=== PATIENT | female | born 1955 | race Caucasian/White ===

== ENCOUNTER 2024-08-01 05:47 | Inpatient (IN) | payer BC, SELFPAY ==
[2024-08-01] VITALS (12 sets, daily range): BP systolic 108–201; BP diastolic 56–86; PULSE 69–97; RESP 14–22; TEMP 36.6–37.1; O2SAT 92–97; BMI 25.4
--- NOTE | ~2024-08-01 | CT_ITS ---
EXAMINATION: CT abdomen pelvis w con DATE: 08/01/2024 07:17 INDICATION: Abdominal pain and leukocytosis TECHNIQUE: Computed tomography (CT) of the abdomen and pelvis was performed with 100 mL Omnipaque-350 intravenous contrast. Automated exposure control and iterative reconstruction technique were employe d. The dose-length product was 350.79 mGy-cm. COMPARISON: None FINDINGS: Mild bibasilar atelectasis. Heart size is normal. No pericardial or pleural effusion. Small sliding-t ype hiatal hernia. Liver, gallbladder, spleen, pancreas, bilateral adrenal glands and left kidney are normal. 6.6 x 4 mm obstructing stone in the mid right ureter with severe right hydronephrosis, delay ed right nephrogram and surrounding perinephric stranding. There are 3 additional 3-4 mm stone in the right kidney. Bowels are unremarkable. Bladder is normal. The uterus is not identified and has likel y been surgically resected. No free intraperitoneal gas or fluid. No pathologically enlarged abdomina l or pelvic lymphadenopathy. Mild to moderate lumbar and lower thoracic spondylosis. Chronic appearin g mild likely physiologic anterior wedging at T10-T12. IMPRESSION: 1. Right nephrolithiasis with obstructing 6 mm right ureteral stone with severe hydronephrosis. Reviewed, dictated and finalized at location A.
--- NOTE | ~2024-08-01 | XR_ITS ---
EXAMINATION: XR retrograde pyelo w/stent RT DATE: 08/03/2024 09:43 INDICATION: Obstructing right ureteral stone with severe hydronephrosis TECHNIQUE: 7 fluoroscopic images of the abdomen and pelvis were obtained during procedure performed kali Abdi. Radiologist was not present for the imaging or procedure. The amount of fluoroscopy time used during this procedure was 0.6 minutes. Total DAP was 0.538 mGym^2. COMPARISON: CT dated 08/01/2024 FINDINGS: Images demonstrate cannulation and retrograde contrast injection into the right ureter and renal janey ecting system. There is severe right hydronephrosis. Subsequent images demonstrate placement of a rig ht ureteral stent with proximal tip in an upper pole calyx of the right kidney and distal tip in the bladder. There is suggestion of a lucent filling defect in the distal right ureter which could repres ent the previous noted stone on CT. IMPRESSION: 1. Severe right hydronephrosis with interval placement of a right anterior vertebral stent which is i n expected position. Possible stone in the distal right ureter. Correlate with procedure note for fur ther detail. Reviewed, dictated and finalized at location A. IMPRESSION: 1. Severe right hydronephrosis with interval placement of a right anterior vert ebral stent which is in expected position. Possible stone in the distal right u reter. Correlate with procedure note for further detail.
[2024-08-01 06:23] LABS: Basophils Absolute Auto 0.1 K/mm3 (0.0-0.1); Basophils Percent Auto 0.5 % (0.2-1.2); Hematocrit 46.5 % (37.0-47.0); Hemoglobin 15.3 g/dL (12.0-15.0); Immature Granulocyte Absolute 0.15 K/mm3 (0.00-0.031); Immature Granulocyte Percent A 0.7 % (0-0.5); Lymphocytes Absolute Auto 1.78 K/mm3 (0.9-3.2); Lymphocytes Percent Auto 8.6 % (18.3-44.2); Mean Corpuscular HGB Conc 32.9 g/dl (32-36); Mean Corpuscular Hemoglobin 29.7 pg (26-34); Mean Corpuscular Volume 90.3 fl (80-100); Mean Platelet Volume 10.5 fl (7.4-10.4); Monocytes Absolute Auto 0.9 K/mm3 (0.1-0.6); Monocytes Percent Auto 4.4 % (2.6-8.5); Neutrophils Absolute Auto 17.8 K/mm3 (1.3-6.7); Neutrophils Percent Auto 85.8 % (45.5-73.1); Platelet Count Result 308 k/mm3 (150-375); Red Blood Count 5.15 M/mm3 (4.2-5.4); Red Cell Distribution Width 13.5 % (11.5-14.5); White Blood Count 20.7 K/mm3 (4.5-10.0)
[2024-08-01 06:30] LABS: Add Urine Microscopic? YES; Appearance Urine Clear (Clear); Bacteria Urine None Seen /hpf; Bilirubin Urine Negative (Negative); Blood Urine 1+ (Negative); Color Urine Yellow (Yellow); Glucose Urine UA Negative (Negative); Ketones Urine Trace mg/dL (Negative); Leukocyte Esterase Ur Negative LEU/UL (Negative); Nitrate Urine Negative (Negative); Non Pathogenic Casts 0-2; Protein Urine Trace mg/dL (Negative); Specific Grav Ur 1.012 (1.001-1.035); Squamous Epithelial Cell Urine None Seen /hpf (Few); Urobilinogen Urine 0.2 mg/dL (<2.0); WBC Urine 0-5 /hpf (0-3)
[2024-08-01 06:37] LABS: Alanine Aminotransferase 43 U/L (6-35); Albumin Level 4.8 g/dL (3.5-5.1); Alkaline Phosphatase 103 U/L (38-126); Anion Gap 14 mmol/L (4-12); Aspartate Amino Transferase 42 U/L (14-36); Bilirubin,Total 0.4 mg/dL (0.2-1.3); Blood Urea Nitrogen 24 mg/dL (7-17); Calcium 10.6 mg/dL (8.4-10.2); Carbon Dioxide 24 mmol/L (22-30); Chloride 101 mmol/L (98-107); Estimated CRCL calculation 49 ml/min; Estimated Glomerular Filt Rate > 60; Glucose 175 mg/dL (65-110); Potassium 3.7 mmol/L (3.4-5.0); Sodium 139 mmol/L (137-145); Total Protein 8.4 g/dL (6.3-8.2)
--- NOTE | 2024-08-01 06:49 | ED_ITS ---
HPI - General Adult General Chief complaint: Urogenital-Female <Ancelmo Cope MD - Last Filed: 08/01/24 06:52> Stated complaint: burning urination, vomitng <Ancelmo Cope MD - Last Filed: 08/01/24 06:52> Time Seen by Provider: 08/01/24 06:52 <Ancelmo Cope MD - Last Filed: 08/01/24 06:52> History of Present Illness HPI narrative: Patient is 69-year-old female who presents emergency department chief complaint of lower abdominal pain and burning with urination patient states that she started having pain yesterday afternoon reports she had discomfort with urination reports he has had nausea and vomiting patient reports she has had kidney stones in the past reports no fever reports she is concerned that she may have a UTI <Ancelmo Cope MD - Last Filed: 08/01/24 06:52> Related Data Allergies/adverse reactions: Allergies Allergy/AdvReac Type Severity Reaction Status Date / Time Sulfa (Sulfonamide AdvReac Hives Verified 08/01/24 06:33 Antibiotics) <Ancelmo Cope MD - Last Filed: 08/01/24 06:52> Review of Systems 2 Review of Systems: A 10 system review of systems was completed on the patient and is negative except for what is stated in the HPI. Nursing and ancillary documentation was reviewed. <Ancelmo Cope MD - Last Filed: 08/01/24 06:52> Exam 2 Narrative: GENERAL: Well-appearing, well-nourished, and in moderate acute pain distress. HEAD: Normocephalic, atraumatic. EYES: PERRLA and EOMI. ENT: Nares clear, no rhinorrhea or epistaxis. Mucous membranes moist. NECK: Supple. CHEST: Clear to auscultation. No respiratory distress. HEART: Regular rate and rhythm. No murmur heard. Normal peripheral pulses. ABDOMEN: Soft, diffuse mild tenderness, nondistended, normal active bowel sounds. EXTREMITIES: Normal range of motion. No edema. SKIN: Warm, dry, no rash. NEURO: No focal deficits. Alert and oriented x3. PSYCH: Normal mood and affect. <Ancelmo Cope MD - Last Filed: 08/01/24 06:52> Course Course Emergency Course: Patient's CT scan results with signs of obstructing stone with hydronephrosis. Patient reassessed at bedside and she is having recurrent pain and nausea. Dilaudid and Reglan are ordered. She notes that she has a history of a urologist performed lithotripsy through [facility] on [address] although she cannot recall their name. We discussed transfer to [facility] for continuity of care versus discussing with our urologist. She did want to proceed with consulting our on-call urologist. Discussed case with Dr. Abdi who noted that the recommendation would be NPO, stent placement today, and admission overnight given her white count. Discussed with patient who is in agreement to stay as she feels this is best given her pain, elderly father, etc. Confirmed with Dr Abdi who wiill add her on to OR schedule. Discussed with Dr Arroyo who accepts admission. <Junie Lopez MD - Last Filed: 08/01/24 08:38> Vital Signs Vital signs: Vital Signs Temperature 98.3 F 08/01/24 05:54 Pulse Rate 86 08/01/24 05:54 Respiratory Rate 17 08/01/24 05:54 Blood Pressure 201/86 H 08/01/24 05:54 Pulse Oximetry 95 08/01/24 05:54 Oxygen Delivery Room Air 08/01/24 05:54 Temperature 98.3 F 08/01/24 05:54 Pulse Rate 93 08/01/24 08:02 Respiratory Rate 16 08/01/24 08:02 Blood Pressure 177/81 H 08/01/24 08:02 Pulse Oximetry 94 08/01/24 08:02 Oxygen Delivery Room Air 08/01/24 05:54 <Ancelmo Cope MD - Last Filed: 08/01/24 06:52> Vital Signs Temperature 98.3 F 08/01/24 05:54 Pulse Rate 86 08/01/24 05:54 Respiratory Rate 17 08/01/24 05:54 Blood Pressure 201/86 H 08/01/24 05:54 Pulse Oximetry 95 08/01/24 05:54 Oxygen Delivery Room Air 08/01/24 05:54 Temperature 98.3 F 08/01/24 05:54 Pulse Rate 93 08/01/24 08:02 Respiratory Rate 16 08/01/24 08:02 Blood Pressure 177/81 H 08/01/24 08:02 Pulse Oximetry 94 08/01/24 08:02 Oxygen Delivery Room Air 08/01/24 05:54 <Junie Lopez MD - Last Filed: 08/01/24 08:38> Medical Decision Making MDM Narrative Medical decision making narrative: Differential diagnosis includes UTI, ureterolithiasis, abdominal pain, intra-abdominal infection, diverticulitis, colitis, appendicitis Laboratory studies were obtained on the patient showed white count of 20.7 hemoglobin was 15.3 electrolytes showed a BUN of 24 and a creatinine is 0.78 glucose is 175 AST and ALT were slightly elevated at 42 and 43 respectively bilirubin was normal Urinalysis showed trace ketones 1+ blood 11-20 red blood cells <Ancelmo Cope MD - Last Filed: 08/01/24 06:52> Vital Signs Vital Signs: Vital Signs Temperature 98.3 F 08/01/24 05:54 Pulse Rate 86 08/01/24 05:54 Respiratory Rate 17 08/01/24 05:54 Blood Pressure 201/86 H 08/01/24 05:54 Pulse Oximetry 95 08/01/24 05:54 Oxygen Delivery Room Air 08/01/24 05:54 Temperature 98.3 F 08/01/24 05:54 Pulse Rate 93 08/01/24 08:02 Respiratory Rate 16 08/01/24 08:02 Blood Pressure 177/81 H 08/01/24 08:02 Pulse Oximetry 94 08/01/24 08:02 Oxygen Delivery Room Air 08/01/24 05:54 <Ancelmo Cope MD - Last Filed: 08/01/24 06:52> Vital Signs Temperature 98.3 F 08/01/24 05:54 Pulse Rate 86 08/01/24 05:54 Respiratory Rate 17 08/01/24 05:54 Blood Pressure 201/86 H 08/01/24 05:54 Pulse Oximetry 95 08/01/24 05:54 Oxygen Delivery Room Air 08/01/24 05:54 Temperature 98.3 F 08/01/24 05:54 Pulse Rate 93 08/01/24 08:02 Respiratory Rate 16 08/01/24 08:02 Blood Pressure 177/81 H 08/01/24 08:02 Pulse Oximetry 94 08/01/24 08:02 Oxygen Delivery Room Air 08/01/24 05:54 <Junie Lopez MD - Last Filed: 08/01/24 08:38> Lab Data Result diagrams: 08/01/24 06:16 08/01/24 06:16 <Ancelmo Cope MD - Last Filed: 08/01/24 06:52> Labs: Lab Results 08/01/24 Range/Units 06:16 WBC 20.7 H (4.5-10.0) K/mm3 RBC 5.15 (4.2-5.4) M/mm3 Hgb 15.3 H (12.0-15.0) g/dL Hct 46.5 (37.0-47.0) % MCV 90.3 (80-100) fl MCH 29.7 (26-34) pg MCHC 32.9 (32-36) g/dl RDW 13.5 (11.5-14.5) % Plt Count 308 (150-375) k/mm3 MPV 10.5 H (7.4-10.4) fl Immature Gran % (Auto) 0.7 H (0-0.5) % Neut % (Auto) 85.8 H (45.5-73.1) % Lymph % (Auto) 8.6 L (18.3-44.2) % [facility] % (Auto) 4.4 (2.6-8.5) % Eos % (Auto) 0.0 (0-4.4) % Baso % (Auto) 0.5 (0.2-1.2) % Lymph # (Auto) 1.78 (0.9-3.2) K/mm3 [facility] # (Auto) 0.9 H (0.1-0.6) K/mm3 Eos # (Auto) 0.0 (0-0.3) K/mm3 Baso # (Auto) 0.1 (0.0-0.1) K/mm3 Abs Immat Gran (auto) 0.15 H (0.00-0.031) K/mm3 Absolute Neuts (auto) 17.8 H (1.3-6.7) K/mm3 Absolute Nucleated RBC 0.000 (0.0-0.012) K/mm3 Nucleated RBC % 0.0 (0.0-0.2) % Sodium 139 (137-145) mmol/L Potassium 3.7 (3.4-5.0) mmol/L Chloride 101 (98-107) mmol/L Carbon Dioxide 24 (22-30) mmol/L Anion Gap 14 H (4-12) mmol/L BUN 24 H (7-17) mg/dL Creatinine 0.78 (0.7-1.0) mg/dL Estim Creat Clear Calc 49 ml/min Estimated GFR > 60 (59 - ) Glucose 175 H (65-110) mg/dL Calcium 10.6 H (8.4-10.2) mg/dL Total Bilirubin 0.4 (0.2-1.3) mg/dL AST 42 H (14-36) U/L ALT 43 H (6-35) U/L Alkaline Phosphatase 103 (38-126) U/L Total Protein 8.4 H (6.3-8.2) g/dL Albumin 4.8 (3.5-5.1) g/dL Urine Color Yellow (Yellow) Urine Appearance Clear (Clear) Urine pH 7.0 (5.0-9.0) Ur Specific [place] 1.012 (1.001-1.035) Urine Protein Trace (Negative) mg/dL Urine Glucose (UA) Negative (Negative) mg/dL Urine Ketones Trace H (Negative) mg/dL Ur Blood (Man) 1+ H (Negative) Urine Nitrate Negative (Negative) Urine Bilirubin Negative (Negative) Urine Urobilinogen 0.2 (<2.0) mg/dL Leukocyte Esterase Rfl Negative (Negative) NEELA/UL Urine RBC 11-20 H (0-2) /hpf Urine WBC 0-5 (0-3) /hpf Ur Squamous Epith Cells None seen (Few) /hpf Urine Bacteria None seen /hpf Urine Casts 0-2 <Ancelmo Cope MD - Last Filed: 08/01/24 06:52> Lab Results 08/01/24 Range/Units 06:16 WBC 20.7 H (4.5-10.0) K/mm3 RBC 5.15 (4.2-5.4) M/mm3 Hgb 15.3 H (12.0-15.0) g/dL Hct 46.5 (37.0-47.0) % MCV 90.3 (80-100) fl MCH 29.7 (26-34) pg MCHC 32.9 (32-36) g/dl RDW 13.5 (11.5-14.5) % Plt Count 308 (150-375) k/mm3 MPV 10.5 H (7.4-10.4) fl Immature Gran % (Auto) 0.7 H (0-0.5) % Neut % (Auto) 85.8 H (45.5-73.1) % Lymph % (Auto) 8.6 L (18.3-44.2) % [facility] % (Auto) 4.4 (2.6-8.5) % Eos % (Auto) 0.0 (0-4.4) % Baso % (Auto) 0.5 (0.2-1.2) % Lymph # (Auto) 1.78 (0.9-3.2) K/mm3 [facility] # (Auto) 0.9 H (0.1-0.6) K/mm3 Eos # (Auto) 0.0 (0-0.3) K/mm3 Baso # (Auto) 0.1 (0.0-0.1) K/mm3 Abs Immat Gran (auto) 0.15 H (0.00-0.031) K/mm3 Absolute Neuts (auto) 17.8 H (1.3-6.7) K/mm3 Absolute Nucleated RBC 0.000 (0.0-0.012) K/mm3 Nucleated RBC % 0.0 (0.0-0.2) % Sodium 139 (137-145) mmol/L Potassium 3.7 (3.4-5.0) mmol/L Chloride 101 (98-107) mmol/L Carbon Dioxide 24 (22-30) mmol/L Anion Gap 14 H (4-12) mmol/L BUN 24 H (7-17) mg/dL Creatinine 0.78 (0.7-1.0) mg/dL Estim Creat Clear Calc 49 ml/min Estimated GFR > 60 (59 - ) Glucose 175 H (65-110) mg/dL Calcium 10.6 H (8.4-10.2) mg/dL Total Bilirubin 0.4 (0.2-1.3) mg/dL AST 42 H (14-36) U/L ALT 43 H (6-35) U/L Alkaline Phosphatase 103 (38-126) U/L Total Protein 8.4 H (6.3-8.2) g/dL Albumin 4.8 (3.5-5.1) g/dL Urine Color Yellow (Yellow) Urine Appearance Clear (Clear) Urine pH 7.0 (5.0-9.0) Ur Specific [place] 1.012 (1.001-1.035) Urine Protein Trace (Negative) mg/dL Urine Glucose (UA) Negative (Negative) mg/dL Urine Ketones Trace H (Negative) mg/dL Ur Blood (Man) 1+ H (Negative) Urine Nitrate Negative (Negative) Urine Bilirubin Negative (Negative) Urine Urobilinogen 0.2 (<2.0) mg/dL Leukocyte Esterase Rfl Negative (Negative) NEELA/UL Urine RBC 11-20 H (0-2) /hpf Urine WBC 0-5 (0-3) /hpf Ur Squamous Epith Cells None seen (Few) /hpf Urine Bacteria None seen /hpf Urine Casts 0-2 <Junie Lopez MD - Last Filed: 08/01/24 08:38> Discharge Plan Discharge Clinical Impression: Right nephrolithiasis, Hydronephrosis with renal and ureteral calculus obstruction, Leukocytosis <Ancelmo Cope MD - Last Filed: 08/01/24 06:52> Patient Disposition: Still a Patient <Ancelmo Cope MD - Last Filed: 08/01/24 06:52> Condition: Stable <Ancelmo Cope MD - Last Filed: 08/01/24 06:52> Patient Language: Czech <Ancelmo Cope MD - Last Filed: 08/01/24 06:52> Follow-up/Referrals: PHYSICIAN NOT ON STAFF,NONSTAFF [Non-Staff] - <Ancelmo Cope MD - Last Filed: 08/01/24 06:52>
[2024-08-01] MEDS: SODIUM CHLORIDE 0.9% IV 1,000 ML 999 ML IV CONT (06:52)
[2024-08-01] MEDS: ONDANSETRON INJ 4 MG/2 ML VIAL IV PUSH (06:53)
[2024-08-01] MEDS: MORPHINE SULFATE (*CRX) 4 MG/ML INJ IV PUSH (06:53)
[2024-08-01] MEDS: METOCLOPRAMIDE HCL INJ 10 MG/2 ML VIAL IV PUSH (08:05)
[2024-08-01] MEDS: HYDROmorphone HCL INJ (*CRX) 2 MG/ML VIAL 0.5 MG IV PUSH (08:06)
--- NOTE | 2024-08-01 11:06 | P.HP_ITS ---
H&P: HPI History of Present Illness Date/Time: 08/01/24 11:06 Chief Complaint: lower abd pain/difficulty urination Narrative: Patient with history of kidney stone presented with lower abdomen pain and dysuria that started history of present time. Patient also has been feeling nauseated. Pain is sharp, severe. Getting better with pain medication. Patient had chills. Denies any fever, chest pain, abdominal pain. Present to hospital for further management. In the ER CT showed hydronephrosis with obstructing stone. Urology team was consulted. Treatment started with pain medication. Patient was admitted for further management. At time of my exam patient feeling better. Her pain is under better control. Lab tests WBC 20.7. We will start IV antibiotics, continue with IV fluid and pain medication. Follow culture result. Review of Systems Review of Systems: A 10 system review of systems was completed on the patient and is negative except for what is stated in the HPI. Nursing and ancillary documentation was reviewed. [facility] Social History Social History Smoking status: Never smoker Alcohol intake: never Substance use: never Substance use type: does not use Do You Feel Safe in your Home?: Yes Lack of Transportation: YES Lack of Food: Never True Current Housing: I Have Housing Concerned About Future Housing: No Difficulty Paying Gas/Electric Bills: No Difficulty Paying for Meds: No Currently Unemployed: No Education: Bachelor's Degree Difficulty w/ Childcare or Family Care: No Spiritual care concerns: No Meds Home Medications and Allergies Home Medications ?Medication ?Instructions ?Recorded ?Confirmed ?Type ascorbate calcium (vitamin C) 500 500 mg PO EVERY OTHER DAY 08/01/24 08/01/24 History mg tablet aspirin 81 mg tablet,delayed 81 mg PO DAILY 08/01/24 08/01/24 History release (Adult Low Dose Aspirin) losartan 25 mg tablet 25 mg PO DAILY 08/01/24 08/01/24 History magnesium sulfate 100 mg capsule 100 mg PO EVERY OTHER DAY 08/01/24 08/01/24 History vit C-vit Z-jrkpbo-cgquqaxq capsule 1 cap PO DAILY 08/01/24 08/01/24 History vitamin E 268 mg (400 unit) capsule 268 mg PO DAILY 08/01/24 08/01/24 History Allergies Allergy/AdvReac Type Severity Reaction Status Date / Time Sulfa (Sulfonamide AdvReac Hives Verified 08/01/24 06:33 Antibiotics) Vital Signs Vital Signs - 24 hr 08/01/24 05:54 08/01/24 07:02 08/01/24 07:46 Temperature 98.3 F Pulse Rate 86 89 97 Respiratory Rate 17 16 16 Blood Pressure 201/86 H 181/78 H 161/70 H Pulse Oximetry 95 97 92 Oxygen Delivery Room Air 08/01/24 08:02 08/01/24 10:01 Temperature Pulse Rate 93 90 Respiratory Rate 16 16 Blood Pressure 177/81 H 149/77 H Pulse Oximetry 94 92 Oxygen Delivery Exam Narrative: GENERAL: Well-appearing, well-nourished, and in moderate acute pain distress. HEAD: Normocephalic, atraumatic. EYES: PERRLA and EOMI. ENT: Nares clear, no rhinorrhea or epistaxis. Mucous membranes moist. NECK: Supple. CHEST: Clear to auscultation. No respiratory distress. HEART: Regular rate and rhythm. No murmur heard. Normal peripheral pulses. ABDOMEN: Soft, diffuse mild lower abdomen tenderness, nondistended, normal active bowel sounds. EXTREMITIES: Normal range of motion. No edema. SKIN: Warm, dry, no rash. NEURO: No focal deficits. Alert and oriented x3. PSYCH: Normal mood and affect. H&P: Results Labs Labs: Short CBC 08/01/24 Range/Units 06:16 WBC 20.7 H (4.5-10.0) K/mm3 Hgb 15.3 H (12.0-15.0) g/dL Hct 46.5 (37.0-47.0) % Plt Count 308 (150-375) k/mm3 [facility] 08/01/24 06:16 Sodium 139 Potassium 3.7 Chloride 101 Carbon Dioxide 24 BUN 24 H Creatinine 0.78 Glucose 175 H Calcium 10.6 H Liver Function 08/01/24 Range/Units 06:16 Total Bilirubin 0.4 (0.2-1.3) mg/dL AST 42 H (14-36) U/L ALT 43 H (6-35) U/L Alkaline Phosphatase 103 (38-126) U/L Albumin 4.8 (3.5-5.1) g/dL Urine 08/01/24 Range/Units 06:16 Urine Color Yellow (Yellow) Urine Appearance Clear (Clear) Urine pH 7.0 (5.0-9.0) Ur Specific [place] 1.012 (1.001-1.035) Urine Protein Trace (Negative) mg/dL Urine Glucose (UA) Negative (Negative) mg/dL Assessment and Plan Assessment and plan (1) Hydronephrosis with renal and ureteral calculus obstruction: Code(s): N13.2 - Hydronephrosis with renal and ureteral calculous obstruction Status: Acute (2) Right nephrolithiasis: Code(s): N20.0 - Calculus of kidney Status: Acute (3) Leukocytosis: Code(s): D72.829 - Elevated white blood cell count, unspecified Status: Acute (4) HTN (hypertension): Code(s): I10 - Essential (primary) hypertension Status: Acute (5) UTI (urinary tract infection): Code(s): N39.0 - Urinary tract infection, site not specified Status: Acute Plan Nephrolithiasis Pain medication Neurology team onboard plan for possible stent placement Continue monitor leukocytosis Secondary to UTI Will start IV Zosyn Follow cultures HTN losartan Continue monitor
[2024-08-01] MEDS: ACETAMINOPHEN 325 MG TABLET 650 MG PO ×2 (11:34→19:50)
--- NOTE | 2024-08-01 11:58 | ADMGEN ---
This patient, Leatha Goldberg, was admitted to 3 [facility] Surg Room 316-02. Patient/family oriented to hospital policies and general routines including ID bracelet, bed and alarms, visiting hours, pain management, procedures, bathroom and other care routines, personal items, smoking policy, room service/diet, and visiting hours. Information on how to activate the Rapid Response Team has been discussed. Patient/Family are encouraged to report perceived risks to care and to ask questions if they do not understand what they are told or what they should do.
[2024-08-01] MEDS: PIPERACILLN/TAZ 3.375GM/NS50ML 3.375 GM/50 ML BAG IVPB ×3 (14:04→23:04)
[2024-08-01 14:07] LABS: Hemoglobin A1C 6.4 % (<5.7)
--- NOTE | 2024-08-01 15:04 | P.CONUR_ITS ---
Assessment and Plan Assessment and plan (1) UTI (urinary tract infection): Code(s): N39.0 - Urinary tract infection, site not specified Status: Acute (2) Leukocytosis: Code(s): D72.829 - Elevated white blood cell count, unspecified Status: Acute (3) Hydronephrosis with renal and ureteral calculus obstruction: Code(s): N13.2 - Hydronephrosis with renal and ureteral calculous obstruction Status: Acute (4) Right nephrolithiasis: Code(s): N20.0 - Calculus of kidney Status: Acute Assessment and Plan: given elevated wbc concern for underlying infected obstructed stone, agree with empiric broad spectrum IV abx ( zosyn), plan for cysto, R RPG, right stent placement, reviewed pertinent risks/benefits/alternatives/nature of procedure and complications in detail. Pt understands stent is temporary and we will not be treating stone today, pt understands stent can cause pain, urinary urgency, frequency and if a stent tis left in too long she may experience irreversible kidney damage. Pt understands she will require additional procedures to treat stone/remove stent, we reviewed risks including but not limited to of bleeding infection, trauma to structures ureteral injury need for PCN tube by IR,stent failure/ migration, etc. Pt understands anesthesia risks of CT, stroke blood clots, /disability. all ? answered pt agrees to proceed. Pt is wishing to transfer care to a local urologist at [place] moving forward given proximity to her home Urology Consult Note HPI Date Seen: 08/01/24 Requesting Physician: Santino Arroyo MD Primary Care Provider: UNKNOWN,DOCTOR Consult Narrative Narrative: Leatha Goldberg is a 69 year old female with hx of HT, kidney stones (primary urologist at [facility] can not remember his name) presented with right lower abdomen pain and dysuria that started history of present time. Patient also has been feeling nauseated. Pain is sharp, severe. Denies GH or dysuria, + chills. Denies any fever, chest pain, abdominal pain. CT in ER shows right mid to distal ureter stone, WBC 20. pt has stents prior for her stone disease Review of Systems 2 Constitutional: Constitutional: Reports as per HPI Eyes: Eyes: Reports as per HPI ENT: Reports Normal hearing present Cardiovascular: Cardiovascular: Reports as per HPI Respiratory: Respiratory: Reports as per HPI Gastrointestinal: Gastrointestinal: Reports no additional gastrointestinal complaints Genitourinary: Genitourinary: Reports no additional female genitourinary complaints Musculoskeletal: Musculoskeletal: Reports no additional musculoskeletal complaints Integumentary/Breasts: Skin/Breast: Reports system reviewed and no additional complaints, except as docu Neurologic: Reports as per HPI Psychiatric: Psychiatric: Reports no additional psychiatric complaints PMFSH Social History Social History Smoking status: Never smoker Alcohol intake: never Substance use: never Substance use type: does not use Do You Feel Safe in your Home?: Yes Lack of Transportation: YES Lack of Food: Never True Current Housing: I Have Housing Concerned About Future Housing: No Difficulty Paying Gas/Electric Bills: No Difficulty Paying for Meds: No Currently Unemployed: No Education: Bachelor's Degree Difficulty w/ Childcare or Family Care: No Spiritual care concerns: No Meds Home Medications and Allergies Home Medications ?Medication ?Instructions ?Recorded ?Confirmed ?Type ascorbate calcium (vitamin C) 500 500 mg PO EVERY OTHER DAY 08/01/24 08/01/24 History mg tablet aspirin 81 mg tablet,delayed 81 mg PO DAILY 08/01/24 08/01/24 History release (Adult Low Dose Aspirin) losartan 25 mg tablet 25 mg PO DAILY 08/01/24 08/01/24 History magnesium sulfate 100 mg capsule 100 mg PO EVERY OTHER DAY 08/01/24 08/01/24 History vit C-vit V-hjaese-hggxtteq capsule 1 cap PO DAILY 08/01/24 08/01/24 History vitamin E 268 mg (400 unit) capsule 268 mg PO DAILY 08/01/24 08/01/24 History Allergies Allergy/AdvReac Type Severity Reaction Status Date / Time Sulfa (Sulfonamide AdvReac Hives Verified 08/01/24 06:33 Antibiotics) Vital Signs Vital Signs - 24 hr 08/01/24 05:54 08/01/24 07:02 08/01/24 07:46 Temperature 36.8 C Pulse Rate 86 89 97 Respiratory Rate 17 16 16 Blood Pressure 201/86 H 181/78 H 161/70 H Pulse Oximetry 95 97 92 Oxygen Delivery Room Air 08/01/24 08:02 08/01/24 10:01 08/01/24 10:20 Temperature 36.6 C Pulse Rate 93 90 92 Respiratory Rate 16 16 18 Blood Pressure 177/81 H 149/77 H 163/68 H Pulse Oximetry 94 92 96 Oxygen Delivery Exam 2 Const: General: comfortable and no acute distress HENMT: Face/Nose/Sinus: Normal nares present Mouth: Yes moist mucous membranes abnormal Eyes: General: appearance normal, both eyes and all related structures EOM: EOMs intact bilaterally Neck: Neck: supple Resp: Effort & Inspection: normal respiratory effort Cardio: Rate: regular rate Rhythm: regular rhythm GI: Inspection: non-distended GI Palp: Yes Soft to palpation, No Tenderness to palpation present (GI) and No Guarding due to palpation present (GI) Skin: General skin exam: normal color and no rashes or lesions noted Neuro: Speech: normal speech Extrem: General: normal to inspection Psych: Speech and movement: Normal speech and movement present Results Labs 08/01/24 06:16 08/01/24 06:16 Labs: Short CBC 08/01/24 Range/Units 06:16 WBC 20.7 H (4.5-10.0) K/mm3 Hgb 15.3 H (12.0-15.0) g/dL Hct 46.5 (37.0-47.0) % Plt Count 308 (150-375) k/mm3 BMP 08/01/24 06:16 Sodium 139 Potassium 3.7 Chloride 101 Carbon Dioxide 24 BUN 24 H Creatinine 0.78 Glucose 175 H Calcium 10.6 H Liver Function 08/01/24 Range/Units 06:16 Total Bilirubin 0.4 (0.2-1.3) mg/dL AST 42 H (14-36) U/L ALT 43 H (6-35) U/L Alkaline Phosphatase 103 (38-126) U/L Albumin 4.8 (3.5-5.1) g/dL Urine 08/01/24 Range/Units 06:16 Urine Color Yellow (Yellow) Urine Appearance Clear (Clear) Urine pH 7.0 (5.0-9.0) Ur Specific [place] 1.012 (1.001-1.035) Urine Protein Trace (Negative) mg/dL Urine Glucose (UA) Negative (Negative) mg/dL Imaging Radiologist's impression: 1. Right nephrolithiasis with obstructing 6 mm right ureteral stone with severe hydronephrosis
--- NOTE | 2024-08-01 15:12 | WPDHPUPDATE1 ---
History and Physical Update Update Date/Time: 08/01/24 15:12 History and Physical has been reviewed, including an updated exam of the patient. There are NO changes in the patient's condition. Risks, benefits, and alternatives have been discussed and questions answered. Patient agrees to proceed with procedure.
--- NOTE | 2024-08-01 15:57 | P.PNAN_ITS ---
Anes - Initial Pre Proc Eval Procedure: Operation Date: 08/01/24 16:00 Proposed Procedures p Cysto, RPG, Stone Ext, Stent Placement(Right) - Taqueria Abdi MD Date/Time: 08/01/24 15:57 Surgeon: Santino Arroyo MD Pre Op Diagnosis: obstructing stone Patient Data Age: 69 Gender: F Height: 1.6 m Weight: 65.3 kg Last Vital Signs Temp 36.7 C 08/01/24 14:00 Pulse 85 08/01/24 14:00 Resp 18 08/01/24 14:00 BP 125/62 08/01/24 14:00 Pulse Ox 93 08/01/24 14:00 O2 Del Method Room Air 08/01/24 05:54 Allergies Allergy/AdvReac Type Severity Reaction Status Date / Time Sulfa (Sulfonamide AdvReac Hives Verified 08/01/24 06:33 Antibiotics) Home Medications ?Medication ?Instructions ?Recorded ?Confirmed ?Type ascorbate calcium (vitamin C) 500 500 mg PO EVERY OTHER DAY 08/01/24 08/01/24 History mg tablet aspirin 81 mg tablet,delayed 81 mg PO DAILY 08/01/24 08/01/24 History release (Adult Low Dose Aspirin) losartan 25 mg tablet 25 mg PO DAILY 08/01/24 08/01/24 History magnesium sulfate 100 mg capsule 100 mg PO EVERY OTHER DAY 08/01/24 08/01/24 History vit C-vit V-wmqcni-vorhxlyn capsule 1 cap PO DAILY 08/01/24 08/01/24 History vitamin E 268 mg (400 unit) capsule 268 mg PO DAILY 08/01/24 08/01/24 History Laboratory Tests 08/01/24 06:16 WBC 20.7 H K/mm3 (4.5-10.0) RBC 5.15 M/mm3 (4.2-5.4) Hgb 15.3 H g/dL (12.0-15.0) Hct 46.5 % (37.0-47.0) MCV 90.3 fl (80-100) MCH 29.7 pg (26-34) MCHC 32.9 g/dl (32-36) RDW 13.5 % (11.5-14.5) Plt Count 308 k/mm3 (150-375) MPV 10.5 H fl (7.4-10.4) Immature Gran % (Auto) 0.7 H % (0-0.5) Neut % (Auto) 85.8 H % (45.5-73.1) Lymph % (Auto) 8.6 L % (18.3-44.2) [place] % (Auto) 4.4 % (2.6-8.5) Eos % (Auto) 0.0 % (0-4.4) Baso % (Auto) 0.5 % (0.2-1.2) Lymph # (Auto) 1.78 K/mm3 (0.9-3.2) [place] # (Auto) 0.9 H K/mm3 (0.1-0.6) Eos # (Auto) 0.0 K/mm3 (0-0.3) Baso # (Auto) 0.1 K/mm3 (0.0-0.1) Abs Immat Gran (auto) 0.15 H K/mm3 (0.00-0.031) Absolute Neuts (auto) 17.8 H K/mm3 (1.3-6.7) Absolute Nucleated RBC 0.000 K/mm3 (0.0-0.012) Nucleated RBC % 0.0 % (0.0-0.2) Sodium 139 mmol/L (137-145) Potassium 3.7 mmol/L (3.4-5.0) Chloride 101 mmol/L (98-107) Carbon Dioxide 24 mmol/L (22-30) Anion Gap 14 H mmol/L (4-12) BUN 24 H mg/dL (7-17) Creatinine 0.78 mg/dL (0.7-1.0) Estim Creat Clear Calc 49 ml/min Estimated GFR > 60 (59 - ) Glucose 175 H mg/dL (65-110) Hemoglobin A1c 6.4 H % (<5.7) Calcium 10.6 H mg/dL (8.4-10.2) Total Bilirubin 0.4 mg/dL (0.2-1.3) AST 42 H U/L (14-36) ALT 43 H U/L (6-35) Alkaline Phosphatase 103 U/L (38-126) Total Protein 8.4 H g/dL (6.3-8.2) Albumin 4.8 g/dL (3.5-5.1) Urine Color Yellow (Yellow) Urine Appearance Clear (Clear) Urine pH 7.0 (5.0-9.0) Ur Specific [place] 1.012 (1.001-1.035) Urine Protein Trace mg/dL (Negative) Urine Glucose (UA) Negative mg/dL (Negative) Urine Ketones Trace H mg/dL (Negative) Ur Blood (Man) 1+ H (Negative) Urine Nitrate Negative (Negative) Urine Bilirubin Negative (Negative) Urine Urobilinogen 0.2 mg/dL (<2.0) Leukocyte Esterase Rfl Negative NEELA/UL (Negative) Urine RBC 11-20 H /hpf (0-2) Urine WBC 0-5 /hpf (0-3) Ur Squamous Epith Cells None seen /hpf (Few) Urine Bacteria None seen /hpf Urine Casts 0-2 Patient hx anesthesia problems: none Family hx anesthesia problems: none Results Review: All pre-operative results and documents have been reviewed as part of the pre- operative evaluation. [facility] Past Medical History Medical History (Updated 08/01/24 @ 15:57 by Andrea Gómez DO) HTN (hypertension) Social History Social History Smoking status: Never smoker Alcohol intake: never Substance use: never Substance use type: does not use Do You Feel Safe in your Home?: Yes Lack of Transportation: YES Lack of Food: Never True Current Housing: I Have Housing Concerned About Future Housing: No Difficulty Paying Gas/Electric Bills: No Difficulty Paying for Meds: No Currently Unemployed: No Education: Bachelor's Degree Difficulty w/ Childcare or Family Care: No Spiritual care concerns: No Anes - Eval Final PreProcedure Day of Procedure 08/01/24 15:57 Patient weight: overweight Heart: regular rate and rhythm Lungs: clear to auscultation Airway: Mallampati scale class II Neurological: alert and oriented Last oral intake: >/= 8 hours ASA classification: II Emergent: no Anesthetic plan: proceed Anesthesia type and monitoring: general LMA and standard monitoring Results Review: All pre-operative results and documents have been reviewed as part of the pre- operative evaluation. Informed Consent: The patient's anesthetic plan and its attendant risks and benefits were discussed with the patient/family/POA. Questions were solicited and answers provided to the satisfaction of the patient/family/POA.
--- NOTE | 2024-08-01 16:31 | P.OP_ITS ---
Procedure Note - Detailed Date of Procedure 08/01/24 Pre-op Diagnosis right obstructing ureter stone Post-op Diagnosis Same Procedure Performed cystoscopy right retrograde pyelogram , right ureter stent placement Surgeon Taqueria Abdi MD Anesthesia General Findings expected moderate to severe right hydronephrosis/hydroureter Description of Procedure Description of procedure: Patient was brought back to the OR, was given general anesthesia via LMA was prepped/draped in standard fashion in the dorsal lithotomy position with Betadine scrubs. Patient received IV Zosyn this am for prophylaxis. Care was taken to not hyperflex or hyperextend any extremity,a ll bony prominences thoroughly padded. After appropriate timeout was performed a a 19 Fr cystoscope was inserted , the urethra was normal, the bladder itself was normal, free of tumor lesion mass or stone, She had single orthotopic ureteral orifices effluxing clear yellow urine. [employer] fluoro reveal no stones. A sensor wire was used to intubate the right uo and the wire was advanced with ease. A 5 Fr open ended catheter was placed and a right retrograde was performed to delineate the collecting system, She had a moderate to severe hydronephrosis/hydroureter at the level of the stone. The wire was placed into the upper pole and a 4.8 Fr variable length stent was deployed. Good curl was seen fluoroscopically in the kidney and both fluoroscopically and endoscopically in the bladder. All instruments and wires removed, bladder drained, no immediate complications, I discussed findings and followup plan with family member Karl, after surgical case, all ? answered. Implants right 4.8 fr variable length stent
[2024-08-01] MEDS: LACTATED RINGERS 1,000 ML 30 ML IV CONT (16:35)
[2024-08-02 04:36] VITALS: BP 143/71; PULSE 79; RESP 16; TEMP 36.4; O2SAT 95
[2024-08-02] MEDS: ACETAMINOPHEN 325 MG TABLET 650 MG PO ×2 (04:38→20:36)
[2024-08-02] MEDS: PIPERACILLN/TAZ 3.375GM/NS50ML 3.375 GM/50 ML BAG IVPB ×3 (05:03→18:06)
[2024-08-02 06:50] LABS: Basophils Absolute Auto 0.1 K/mm3 (0.0-0.1); Basophils Percent Auto 0.8 % (0.2-1.2); Eosinophils Absolute Auto 0.2 K/mm3 (0-0.3); Eosinophils Percent Auto 1.9 % (0-4.4); Hematocrit 40.5 % (37.0-47.0); Hemoglobin 12.7 g/dL (12.0-15.0); Immature Granulocyte Absolute 0.04 K/mm3 (0.00-0.031); Immature Granulocyte Percent A 0.3 % (0-0.5); Lymphocytes Absolute Auto 2.52 K/mm3 (0.9-3.2); Mean Corpuscular HGB Conc 31.4 g/dl (32-36); Mean Corpuscular Hemoglobin 29.5 pg (26-34); Mean Corpuscular Volume 94.2 fl (80-100); Mean Platelet Volume 10.8 fl (7.4-10.4); Monocytes Absolute Auto 0.9 K/mm3 (0.1-0.6); Monocytes Percent Auto 7.6 % (2.6-8.5); Neutrophils Absolute Auto 8.2 K/mm3 (1.3-6.7); Neutrophils Percent Auto 68.4 % (45.5-73.1); Platelet Count Result 245 k/mm3 (150-375); Red Cell Distribution Width 14.3 % (11.5-14.5)
[2024-08-02 07:06] LABS: Anion Gap 12 mmol/L (4-12); Blood Urea Nitrogen 28 mg/dL (7-17); Carbon Dioxide 23 mmol/L (22-30); Chloride 106 mmol/L (98-107); Estimated CRCL calculation 41 ml/min; Estimated Glomerular Filt Rate 59; Glucose 142 mg/dL (65-110); Potassium 3.6 mmol/L (3.4-5.0); Sodium 141 mmol/L (137-145)
[2024-08-02] MEDS: LOSARTAN POTASSIUM 25 MG TABLET PO (08:38)
[2024-08-02] MEDS: ASPIRIN 81 MG ENTERIC TABLET PO (08:38)
--- NOTE | 2024-08-02 12:20 | P.PNUR_ITS ---
Progress Note: A&P Assessment and Plan (1) UTI (urinary tract infection): Code(s): N39.0 - Urinary tract infection, site not specified Status: Acute (2) Leukocytosis: Code(s): D72.829 - Elevated white blood cell count, unspecified Status: Acute (3) Hydronephrosis with renal and ureteral calculus obstruction: Code(s): N13.2 - Hydronephrosis with renal and ureteral calculous obstruction Status: Acute (4) Right nephrolithiasis: Code(s): N20.0 - Calculus of kidney Status: Acute Assessment and Plan: POD#1 s/p stent placement for right ureter stone/hydro -wbc decreasing -clinically improving -await cultures -outpt stone management Subjective Subjective Date/Time Seen: 08/02/24 12:20 Interval history: NAEO: tolerating diet, no pain, denies CP/SOB. urine clear Review of Systems Constitutional: Constitutional: Reports no additional constitutional complaints Eyes: Eyes: Reports no additional eye complaints ENT: Reports system reviewed and no additional complaints, except as documented Cardiovascular: Cardiovascular: Reports no additional cardiovascular complaints Respiratory: Respiratory: Reports no additional respiratory complaints Gastrointestinal: Gastrointestinal: Reports no additional gastrointestinal complaints Genitourinary: Genitourinary: Reports no additional female genitourinary complaints Musculoskeletal: Musculoskeletal: Reports no additional musculoskeletal complaints Integumentary/Breasts: Skin/Breast: Reports system reviewed and no additional complaints, except as docu Exam Const: General: comfortable and no acute distress HENMT: Mouth: Yes moist mucous membranes Eyes: General: appearance normal, both eyes and all related structures Resp: Effort & Inspection: normal respiratory effort Cardio: Rate: regular rate GI: GI Palp: Yes Soft to palpation, No Tenderness to palpation present (GI) and No Guarding due to palpation present (GI) Neuro: General: gait normal Extrem: General: normal to inspection Objective Data Vital Signs Vital Signs: Vital Signs - 24 hr 08/01/24 14:00 08/01/24 16:35 08/01/24 16:50 Temperature 36.7 C 36.8 C Pulse Rate 85 69 77 Respiratory Rate 18 14 22 H Blood Pressure 125/62 108/56 L 117/66 Pulse Oximetry 93 97 94 Oxygen Delivery Simple Face Mask Room Air Oxygen Flow Rate 8 08/01/24 17:05 08/01/24 17:20 08/01/24 20:00 Temperature Pulse Rate 79 82 Respiratory Rate 22 H 22 H Blood Pressure 118/63 124/68 Pulse Oximetry 92 97 Oxygen Delivery Room Air Room Air Room Air Oxygen Flow Rate 08/01/24 20:58 08/02/24 04:36 08/02/24 08:30 Temperature 37.1 C 36.4 C Pulse Rate 86 79 Respiratory Rate 16 16 Blood Pressure 134/59 L 143/71 H Pulse Oximetry 95 95 Oxygen Delivery Room Air Oxygen Flow Rate Intake/Output Intake/Output: Intake & Output 07/30/24 07/31/24 08/01/24 08/02/24 23:59 23:59 23:59 23:59 Intake Total 1440 1600 Balance 1440 1600 Meds/Results Medications: Active Medications Generic Name Dose Route Start Last Admin Trade Name Freq PRN Reason Stop Dose Admin Acetaminophen 650 mg 08/01/24 08:36 08/02/24 04:38 Acetaminophen 325 Mg Tablet PO 650 mg Q4H PRN Administration Mild Pain (1-3) or Fever Aspirin 81 mg 08/02/24 09:00 08/02/24 08:38 Aspirin 81 Mg Enteric Tablet PO 81 mg DAILY LEONARDO Administration Enoxaparin Sodium 40 mg 08/02/24 09:00 08/02/24 08:43 Enoxaparin 40 Mg/0.4 Ml Syringe SUB-Q Not Given DAILY LEONARDO Piperacillin/Tazobactam/Dextrose 3.375 gm in 50 mls @ 100 mls/hr 08/01/24 12:30 08/02/24 11:31 Zosyn 3.375 Gm/Ns 50 Ml IVPB 100 mls/hr Q6HR LEONARDO Administration Lactated Ringer's 1,000 mls @ 30 mls/hr 08/01/24 16:00 Lr - Lactated Ringers Iv IV CONT .Q24H LEONARDO Losartan Potassium 25 mg 08/02/24 09:00 08/02/24 08:38 Losartan Potassium 25 Mg Tablet PO 25 mg DAILY LEONARDO Administration Miscellaneous Information 0 each 08/01/24 00:01 Magnesium 100mg Capsule Not Stocked- Change To 200mg Tab If Needed Or D/C. XX 08/31/24 00:00 CLARIFY LEONARDO Morphine Sulfate 4 mg 08/01/24 08:36 Morphine Sulfate (*Crx) 4 Mg/Ml Inj IV PUSH Q2H PRN Pain Rated 7-10 Non-Formulary Medication 100 mg 08/01/24 14:00 Magnesium Sulfate PO 08/31/24 13:59 EVERY OTHER DAY LEONARDO Ondansetron HCl 4 mg 08/01/24 08:36 Ondansetron Inj 4 Mg/2 Ml Vial IV PUSH Q4H PRN Nausea Radiology Results: ITS Impressions Abdomen/Pelvis CT 08/01/24 07:20 IMPRESSION: 1. Right nephrolithiasis with obstructing 6 mm right ureteral stone with severe hydronephrosis. Labs Labs: Laboratory Results - last 24 hr 08/01/24 08/02/24 06:16 06:13 WBC 12.0 H RBC 4.30 Hgb 12.7 Hct 40.5 MCV 94.2 MCH 29.5 MCHC 31.4 L RDW 14.3 Plt Count 245 MPV 10.8 H Immature Gran % (Auto) 0.3 Neut % (Auto) 68.4 Lymph % (Auto) 21.0 [facility] % (Auto) 7.6 Eos % (Auto) 1.9 Baso % (Auto) 0.8 Lymph # (Auto) 2.52 [facility] # (Auto) 0.9 H Eos # (Auto) 0.2 Baso # (Auto) 0.1 Abs Immat Gran (auto) 0.04 H Absolute Neuts (auto) 8.2 H Absolute Nucleated RBC 0.000 Nucleated RBC % 0.0 Sodium 141 Potassium 3.6 Chloride 106 Carbon Dioxide 23 Anion Gap 12 BUN 28 H Creatinine 0.94 Estim Creat Clear Calc 41 Estimated GFR 59 Glucose 142 H Hemoglobin A1c 6.4 H Calcium 9.0
--- NOTE | 2024-08-02 12:44 | PM.IMPN ---
Progress Note: A&P Assessment and Plan (1) Hydronephrosis with renal and ureteral calculus obstruction: Code(s): N13.2 - Hydronephrosis with renal and ureteral calculous obstruction Status: Acute (2) Right nephrolithiasis: Code(s): N20.0 - Calculus of kidney Status: Acute (3) Leukocytosis: Code(s): D72.829 - Elevated white blood cell count, unspecified Status: Acute (4) HTN (hypertension): Code(s): I10 - Essential (primary) hypertension Status: Inactive (5) UTI (urinary tract infection): Code(s): N39.0 - Urinary tract infection, site not specified Status: Acute Plan Nephrolithiasis underwent stent placement yesterday Pain medication urology team onboard Continue monitor leukocytosis improving Secondary to UTI IV Zosyn Follow cultures HTN losartan Continue monitor Subjective Date/time seen: 08/02/24 12:44 Interval history: per HPI: Patient with history of kidney stone presented with lower abdomen pain and dysuria that started history of present time. Patient also has been feeling nauseated. Pain is sharp, severe. Getting better with pain medication. Patient had chills. Denies any fever, chest pain, abdominal pain. Present to hospital for further management. In the ER CT showed hydronephrosis with obstructing stone. Urology team was consulted. Treatment started with pain medication. Patient was admitted for further management. At time of my exam patient feeling better. Her pain is under better control. Lab tests WBC 20.7. We will start IV antibiotics, continue with IV fluid and pain medication. Follow culture resul Patient was seen and examined at bedside. she is feeling better. abd pain improving. underwent stent placement yesterday. U/C pending Review of Systems Review of Systems: A 10 system review of systems was completed on the patient and is negative except for what is stated in the HPI. Nursing and ancillary documentation was reviewed. Exam Narrative: GENERAL: Well-appearing, well-nourished, and in moderate acute pain distress. HEAD: Normocephalic, atraumatic. EYES: PERRLA and EOMI. ENT: Nares clear, no rhinorrhea or epistaxis. Mucous membranes moist. NECK: Supple. CHEST: Clear to auscultation. No respiratory distress. HEART: Regular rate and rhythm. No murmur heard. Normal peripheral pulses. ABDOMEN: Soft, diffuse mild lower abdomen tenderness, nondistended, normal active bowel sounds. EXTREMITIES: Normal range of motion. No edema. SKIN: Warm, dry, no rash. NEURO: No focal deficits. Alert and oriented x3. PSYCH: Normal mood and affect. Objective Data Vital Signs Vital Signs: Vital Signs - 24 hr 08/01/24 14:00 08/01/24 16:35 08/01/24 16:50 Temperature 98.0 F 98.2 F Pulse Rate 85 69 77 Respiratory Rate 18 14 22 H Blood Pressure 125/62 108/56 L 117/66 Pulse Oximetry 93 97 94 Oxygen Delivery Simple Face Mask Room Air Oxygen Flow Rate 8 08/01/24 17:05 08/01/24 17:20 08/01/24 20:00 Temperature Pulse Rate 79 82 Respiratory Rate 22 H 22 H Blood Pressure 118/63 124/68 Pulse Oximetry 92 97 Oxygen Delivery Room Air Room Air Room Air Oxygen Flow Rate 08/01/24 20:58 08/02/24 04:36 08/02/24 08:30 Temperature 98.7 F 97.6 F Pulse Rate 86 79 Respiratory Rate 16 16 Blood Pressure 134/59 L 143/71 H Pulse Oximetry 95 95 Oxygen Delivery Room Air Oxygen Flow Rate Intake/Output Intake/Output: Intake & Output 07/30/24 07/31/24 08/01/24 08/02/24 23:59 23:59 23:59 23:59 Intake Total 1440 1600 Balance 1440 1600 Meds/Results Medications: Active Medications Generic Name Dose Route Start Last Admin Trade Name Freq PRN Reason Stop Dose Admin Acetaminophen 650 mg 08/01/24 08:36 08/02/24 04:38 Acetaminophen 325 Mg Tablet PO 650 mg Q4H PRN Administration Mild Pain (1-3) or Fever Aspirin 81 mg 08/02/24 09:00 08/02/24 08:38 Aspirin 81 Mg Enteric Tablet PO 81 mg DAILY LEONARDO Administration Enoxaparin Sodium 40 mg 08/02/24 09:00 08/02/24 08:43 Enoxaparin 40 Mg/0.4 Ml Syringe SUB-Q Not Given DAILY LEONARDO Piperacillin/Tazobactam/Dextrose 3.375 gm in 50 mls @ 100 mls/hr 08/01/24 12:30 08/02/24 11:31 Zosyn 3.375 Gm/Ns 50 Ml IVPB 100 mls/hr Q6HR LEONARDO Administration Lactated Ringer's 1,000 mls @ 30 mls/hr 08/01/24 16:00 Lr - Lactated Ringers Iv IV CONT .Q24H LEONARDO Losartan Potassium 25 mg 08/02/24 09:00 08/02/24 08:38 Losartan Potassium 25 Mg Tablet PO 25 mg DAILY LEONARDO Administration Miscellaneous Information 0 each 08/01/24 00:01 Magnesium 100mg Capsule Not Stocked- Change To 200mg Tab If Needed Or D/C. XX 08/31/24 00:00 CLARIFY LEONARDO Morphine Sulfate 4 mg 08/01/24 08:36 Morphine Sulfate (*Crx) 4 Mg/Ml Inj IV PUSH Q2H PRN Pain Rated 7-10 Non-Formulary Medication 100 mg 08/01/24 14:00 Magnesium Sulfate PO 08/31/24 13:59 EVERY OTHER DAY LEONARDO Ondansetron HCl 4 mg 08/01/24 08:36 Ondansetron Inj 4 Mg/2 Ml Vial IV PUSH Q4H PRN Nausea Radiology Results: ITS Impressions Abdomen/Pelvis CT 08/01/24 07:20 IMPRESSION: 1. Right nephrolithiasis with obstructing 6 mm right ureteral stone with severe hydronephrosis. Labs Labs: Laboratory Results - last 24 hr 08/01/24 08/02/24 06:16 06:13 WBC 12.0 H RBC 4.30 Hgb 12.7 Hct 40.5 MCV 94.2 MCH 29.5 MCHC 31.4 L RDW 14.3 Plt Count 245 MPV 10.8 H Immature Gran % (Auto) 0.3 Neut % (Auto) 68.4 Lymph % (Auto) 21.0 [place] % (Auto) 7.6 Eos % (Auto) 1.9 Baso % (Auto) 0.8 Lymph # (Auto) 2.52 [place] # (Auto) 0.9 H Eos # (Auto) 0.2 Baso # (Auto) 0.1 Abs Immat Gran (auto) 0.04 H Absolute Neuts (auto) 8.2 H Absolute Nucleated RBC 0.000 Nucleated RBC % 0.0 Sodium 141 Potassium 3.6 Chloride 106 Carbon Dioxide 23 Anion Gap 12 BUN 28 H Creatinine 0.94 Estim Creat Clear Calc 41 Estimated GFR 59 Glucose 142 H Hemoglobin A1c 6.4 H Calcium 9.0
[2024-08-02 14:00] VITALS: BP 153/75; PULSE 70; RESP 18; TEMP 36.6; O2SAT 18
[2024-08-02 20:13] VITALS: BP 136/75; PULSE 71; RESP 18; TEMP 36.6; O2SAT 94
[2024-08-03] MEDS: PIPERACILLN/TAZ 3.375GM/NS50ML 3.375 GM/50 ML BAG IVPB ×2 (00:14→06:00)
[2024-08-03 05:05] VITALS: BP 151/71; PULSE 65; RESP 20; TEMP 36.3; O2SAT 96
[2024-08-03] MEDS: ACETAMINOPHEN 325 MG TABLET 650 MG PO ×2 (05:45→11:35)
[2024-08-03 06:22] LABS: Basophils Absolute Auto 0.1 K/mm3 (0.0-0.1); Basophils Percent Auto 1.4 % (0.2-1.2); Eosinophils Absolute Auto 0.7 K/mm3 (0-0.3); Eosinophils Percent Auto 7.9 % (0-4.4); Hematocrit 40.7 % (37.0-47.0); Hemoglobin 12.8 g/dL (12.0-15.0); Immature Granulocyte Absolute 0.03 K/mm3 (0.00-0.031); Immature Granulocyte Percent A 0.3 % (0-0.5); Lymphocytes Absolute Auto 2.23 K/mm3 (0.9-3.2); Lymphocytes Percent Auto 25.2 % (18.3-44.2); Mean Corpuscular HGB Conc 31.4 g/dl (32-36); Mean Corpuscular Hemoglobin 29.4 pg (26-34); Mean Corpuscular Volume 93.6 fl (80-100); Mean Platelet Volume 10.6 fl (7.4-10.4); Monocytes Absolute Auto 0.7 K/mm3 (0.1-0.6); Monocytes Percent Auto 8.2 % (2.6-8.5); Platelet Count Result 250 k/mm3 (150-375); Red Blood Count 4.35 M/mm3 (4.2-5.4); Red Cell Distribution Width 13.9 % (11.5-14.5); White Blood Count 8.9 K/mm3 (4.5-10.0)
[2024-08-03 06:35] LABS: Anion Gap 9 mmol/L (4-12); Blood Urea Nitrogen 21 mg/dL (7-17); Carbon Dioxide 26 mmol/L (22-30); Chloride 105 mmol/L (98-107); Estimated CRCL calculation 49 ml/min; Estimated Glomerular Filt Rate > 60; Glucose 116 mg/dL (65-110); Potassium 3.7 mmol/L (3.4-5.0); Sodium 140 mmol/L (137-145)
--- NOTE | 2024-08-03 09:01 | P.PNUR_ITS ---
Progress Note: A&P Assessment and Plan (1) UTI (urinary tract infection): Code(s): N39.0 - Urinary tract infection, site not specified Status: Ruled-out (2) Leukocytosis: Code(s): D72.829 - Elevated white blood cell count, unspecified Status: Resolved (3) Hydronephrosis with renal and ureteral calculus obstruction: Code(s): N13.2 - Hydronephrosis with renal and ureteral calculous obstruction Status: Acute (4) Right nephrolithiasis: Code(s): N20.0 - Calculus of kidney Status: Acute Plan 69-year-old female found to have 6 mm obstructing right ureteral stone with severe hydronephrosis * S/p cystoscopy, right retrograde pyelogram, right ureteral stent placement on 08/01/[address] Abdi * Patient understands temporary nature of stent and need for definitive stone management as an outpatient. Outpatient follow-up will be arranged and patient aware she will be contacted for appointment information * Urine culture negative. No need for ongoing antibiotics. * Leukocytosis has resolved. WBC within normal limits today. * Okay for discharge from Urology standpoint Subjective Subjective Date/Time Seen: 08/03/24 09:01 Interval history: This is feeling well today. She is tolerating her diet. She is voiding without difficulty. States her urine is clear. Denies dysuria or hematuria. No nausea, vomiting, fever, or chills. Review of Systems Review of Systems: All systems reviewed & are unremarkable except as noted in HPI and below Exam Narrative: General: Awake, alert, comfortable, no acute distress HEENT: Normocephalic, atraumatic, sclerae anicteric Respiratory: Normal respiratory effort, no accessory muscle use Skin: Normal coloration, warm and dry Neurologic: No focal neuro deficits noted Psychiatric: Appropriate mood and affect, judgment and insight intact Objective Data Vital Signs Vital Signs: Vital Signs - 24 hr 08/02/24 14:00 08/02/24 20:00 08/02/24 20:13 Temperature 97.8 F 97.9 F Pulse Rate 70 71 Respiratory Rate 18 18 Blood Pressure 153/75 H 136/75 Pulse Oximetry 18 L 94 Oxygen Delivery Room Air 08/03/24 05:05 Temperature 97.4 F L Pulse Rate 65 Respiratory Rate 20 Blood Pressure 151/71 H Pulse Oximetry 96 Oxygen Delivery Intake/Output Intake/Output: Intake & Output 07/31/24 08/01/24 08/02/24 08/03/24 23:59 23:59 23:59 23:59 Intake Total 1440 2490 650 Balance 1440 2490 650 Meds/Results Medications: Active Medications Generic Name Dose Route Start Last Admin Trade Name Freq PRN Reason Stop Dose Admin Acetaminophen 650 mg 08/01/24 08:36 08/03/24 05:45 Acetaminophen 325 Mg Tablet PO 650 mg Q4H PRN Administration Mild Pain (1-3) or Fever Aspirin 81 mg 08/02/24 09:00 08/02/24 08:38 Aspirin 81 Mg Enteric Tablet PO 81 mg DAILY LEONARDO Administration Cephalexin HCl 500 mg 08/03/24 12:00 Cephalexin 500 Mg Capsule PO Q6HR LEONARDO Enoxaparin Sodium 40 mg 08/02/24 09:00 08/02/24 08:43 Enoxaparin 40 Mg/0.4 Ml Syringe SUB-Q Not Given DAILY LEONARDO Lactated Ringer's 1,000 mls @ 30 mls/hr 08/01/24 16:00 08/02/24 20:37 Lr - Lactated Ringers Iv IV CONT Not Given .Q24H LEONARDO Losartan Potassium 25 mg 08/02/24 09:00 08/02/24 08:38 Losartan Potassium 25 Mg Tablet PO 25 mg DAILY LEONARDO Administration Miscellaneous Information 0 each 08/01/24 00:01 08/03/24 00:14 Magnesium 100mg Capsule Not Stocked- Change To 200mg Tab If Needed Or D/C. XX 08/31/24 00:00 Not Given CLARIFY LEONARDO Morphine Sulfate 4 mg 08/01/24 08:36 Morphine Sulfate (*Crx) 4 Mg/Ml Inj IV PUSH Q2H PRN Pain Rated 7-10 Non-Formulary Medication 100 mg 08/01/24 14:00 Magnesium Sulfate PO 08/31/24 13:59 EVERY OTHER DAY LEONARDO Ondansetron HCl 4 mg 08/01/24 08:36 Ondansetron Inj 4 Mg/2 Ml Vial IV PUSH Q4H PRN Nausea Radiology Results: ITS Impressions Abdomen/Pelvis CT 08/01/24 07:20 IMPRESSION: 1. Right nephrolithiasis with obstructing 6 mm right ureteral stone with severe hydronephrosis. Labs Labs: Laboratory Results - last 24 hr 08/03/24 05:54 WBC 8.9 RBC 4.35 Hgb 12.8 Hct 40.7 MCV 93.6 MCH 29.4 MCHC 31.4 L RDW 13.9 Plt Count 250 MPV 10.6 H Immature Gran % (Auto) 0.3 Neut % (Auto) 57.0 Lymph % (Auto) 25.2 [place] % (Auto) 8.2 Eos % (Auto) 7.9 H Baso % (Auto) 1.4 H Lymph # (Auto) 2.23 [place] # (Auto) 0.7 H Eos # (Auto) 0.7 H Baso # (Auto) 0.1 Abs Immat Gran (auto) 0.03 Absolute Neuts (auto) 5.0 Absolute Nucleated RBC 0.000 Nucleated RBC % 0.0 Sodium 140 Potassium 3.7 Chloride 105 Carbon Dioxide 26 Anion Gap 9 BUN 21 H Creatinine 0.78 Estim Creat Clear Calc 49 Estimated GFR > 60 Glucose 116 H Calcium 9.0
[2024-08-03] MEDS: LOSARTAN POTASSIUM 25 MG TABLET PO (09:22)
[2024-08-03] MEDS: ENOXAPARIN 40 MG/0.4 ML SYRINGE SUB-Q (09:22)
[2024-08-03] MEDS: ASPIRIN 81 MG ENTERIC TABLET PO (09:22)
[2024-08-03 10:09] VITALS: O2SAT 96
[2024-08-03] MEDS: CEPHALEXIN 500 MG CAPSULE PO (11:37)
--- NOTE | 2024-08-03 11:41 | P.DS_ITS ---
DS: Admitting Diagnosis Discharge Date 08/03/24 Admitting Diagnosis Abd pain, kidney stone DS: Discharge Diagnosis Discharge Diagnosis (1) UTI (urinary tract infection): Code(s): N39.0 - Urinary tract infection, site not specified Status: Ruled-out (2) Leukocytosis: Code(s): D72.829 - Elevated white blood cell count, unspecified Status: Resolved (3) Hydronephrosis with renal and ureteral calculus obstruction: Code(s): N13.2 - Hydronephrosis with renal and ureteral calculous obstruction Status: Acute (4) Right nephrolithiasis: Code(s): N20.0 - Calculus of kidney Status: Acute Assessment and Plan: Nephrolithiasis underwent stent placement Pain medication urology team onboard Continue monitor leukocytosis improving Secondary to UTI U/C neg received Zosyn will switch to Keflex HTN losartan Continue monitor Plan 69-year-old female found to have 6 mm obstructing right ureteral stone with severe hydronephrosis * S/p cystoscopy, right retrograde pyelogram, right ureteral stent placement on 08/01/[address] Abdi DS: Summary Hospital Course Hospital Course: per HPI: Patient with history of kidney stone presented with lower abdomen pain and dysuria that started history of present time. Patient also has been feeling nauseated. Pain is sharp, severe. Getting better with pain medication. Patient had chills. Denies any fever, chest pain, abdominal pain. Present to hospital for further management. In the ER CT showed hydronephrosis with obstructing stone. Urology team was consulted. Treatment started with pain medication. Patient was admitted for further management. At time of my exam patient feeling better. Her pain is under better control. Lab tests WBC 20.7. We will start IV antibiotics, continue with IV fluid and pain medication. Follow culture resul Patient was seen and examined at bedside. she is feeling better. abd pain improving. underwent stent placement yesterday. U/C pending 08/03/24 Patoent was seen and examined at bedside. she is feeling better. her abd pain is better, denies chest pain, SOB, abd pain N/V. U/c neg. WBC improving. will discharge patine ton Keflex. Status at Discharge Overall status at discharge: patient is back to baseline Time Spent with Patient Time attestation: Total time spent providing and/or coordinating discharge services: Exam Narrative: General: Awake, alert, comfortable, no acute distress HEENT: Normocephalic, atraumatic, sclerae anicteric Respiratory: Normal respiratory effort, no accessory muscle use Skin: Normal coloration, warm and dry Neurologic: No focal neuro deficits noted Psychiatric: Appropriate mood and affect, judgment and insight intact DS: Data Data Completed and Pending Labs on day of discharge: Labs from last 24 hours 08/03/24 05:54 WBC 8.9 RBC 4.35 Hgb 12.8 Hct 40.7 MCV 93.6 MCH 29.4 MCHC 31.4 L RDW 13.9 Plt Count 250 MPV 10.6 H Immature Gran % (Auto) 0.3 Neut % (Auto) 57.0 Lymph % (Auto) 25.2 [place] % (Auto) 8.2 Eos % (Auto) 7.9 H Baso % (Auto) 1.4 H Lymph # (Auto) 2.23 [place] # (Auto) 0.7 H Eos # (Auto) 0.7 H Baso # (Auto) 0.1 Abs Immat Gran (auto) 0.03 Absolute Neuts (auto) 5.0 Absolute Nucleated RBC 0.000 Nucleated RBC % 0.0 Sodium 140 Potassium 3.7 Chloride 105 Carbon Dioxide 26 Anion Gap 9 BUN 21 H Creatinine 0.78 Estim Creat Clear Calc 49 Estimated GFR > 60 Glucose 116 H Calcium 9.0 Discharge Plan Discharge Attending physician on discharge: Santino Arroyo Consulting providers: Taqueria Abdi Discharging Clinician: Santino Arroyo Anticipated Discharge Date/Time: 08/03/24 11:48 Patient Disposition: Home Activity: as tolerated Diet: as tolerated Discharge Instructions: continue Antibiotic for 7 more days. follow with urology clinic as scheduled Patient Instructions: Antibiotic Form, Aspirin (By mouth) Patient Language: Telugu Stand Alone Forms: General Discharge Information Follow-up/Referrals: Joel,Ethel Pereira [Other] - 1 Week Taqueria Abdi MD [Physician] - Call for Appointment Discharge Medications: New cephalexin 500 mg Capsule 500 mg PO Q6HR Qty: 28 0RF Continued losartan 25 mg tablet 25 mg PO DAILY aspirin [Adult Low Dose Aspirin] 81 mg tablet,delayed release (DR/EC) 81 mg PO DAILY vitamin E 268 mg (400 unit) capsule 268 mg PO DAILY magnesium sulfate 100 mg capsule 100 mg PO EVERY OTHER DAY ascorbate calcium (vitamin C) 500 mg tablet 500 mg PO EVERY OTHER DAY vit C-vit [id number]-hlpafali Capsule 1 cap PO DAILY Date of admission: 08/02/24 13:10 Primary Care Provider: Joel,Ethel Pereira Admitting Provider: Santino Arroyo Attending physician on admission: Santino Arroyo Condition: Stable
== END 2024-08-03 12:50 | disposition home or self-care (01) | DRG 661 ==
LOC: ANHED 09:24 → ANH3MEDSUR 09:49
PROVIDERS: Emergency Medicine; Urology; Admitting Provider Internal Medicine; Emergency Provider Student in an Organized Health Care Education/Training Program; Visit Provider Internal Medicine
PROC: 0T768DZ Dilation of Right Ureter with Intraluminal Device, Via Natural or Artificial Opening Endoscopic (ICD-10-PCS; CPT 52352; principal; 2024-08-01 16:00)
DX: N13.2 Hydronephrosis with renal and ureteral calculous obstruction (principal); I10 Essential (primary) hypertension; N39.0 Urinary tract infection, site not specified; D72.829 Elevated white blood cell count, unspecified; Z79.82 Long term (current) use of aspirin
CPT/HCPCS: 36415; 74177; 74420; 80048; 80053; 81001; 83036; 85025; 87086; 96361; 96374; 96375; 96376; 99285; A9270; C1758; C1769; C2617; G0378; J1171; J1650; J2270; J2405; J2543; J2704; J2765; J3010; J7030; J7120; Q9966; Q9967

== ENCOUNTER 2024-08-04 12:03 | Outpatient (CLI) | payer BC, SELFPAY ==
--- NOTE | ~2024-08-04 | XR_ITS ---
XR abdomen/kub 1V Ordering provider: Srikanth Whatley MD History: . Kidney stone . Comparison: None. FINDINGS: BOWEL: Nonobstructive bowel gas pattern. ORGANOMEGALY: None. SIGNIFICANT PATHOLOGIC CALCIFICATIONS: Right double-J stent with a stone in the right lower ureter. P ossible stone in the right kidney lower pole. OTHER: No free air is seen under the diaphragm. IMPRESSION: NO ACUTE ABDOMINAL FINDINGS. Right double-J stent with stone in the right lower ureter. Possible right kidney stone Reviewed, dictated and finalized at location A. IMPRESSION: NO ACUTE ABDOMINAL FINDINGS. Right double-J stent with stone in the right lower ureter. Possible right kidne y stone
== END 2024-08-04 12:04 | disposition home or self-care (01) ==
LOC: MICIMG 12:06
PROVIDERS: Visit Provider Urology
DX: N20.0 Calculus of kidney (principal); Z96.0 Presence of urogenital implants
CPT/HCPCS: 74018

== ENCOUNTER 2024-08-06 00:44 | Day surgery (SDC) | payer BC, SELFPAY ==
[2024-08-05 08:23] VITALS: BMI 22.5
--- NOTE | 2024-08-05 08:31 | PC.NURSE ---
Report to the Outpatient Waiting Room, entrance under the green pavilion located off [facility], at time _1045_ on date _[id number]_. Planned Procedure Time: _1245_.? Time changes happen often and if your time is changed the preop area will call you the afternoon before. - You and your visitor will be asked to self-screen and do not enter if you have any COVID symptoms. Please call surgeon if you need to reschedule. - A mask is optional within the hospital at this time. Patients may have clear liquids (water, carbonated beverages, clear teas, apple juice) until 3 hours prior to surgery with a maximum of 20 ounces. - No food from midnight until time of surgery and no smoking, or chewing tobacco (or any form of nicotine). No chewing gum, candy or mints. Take only the following medications with a SIP of water on the morning of surgery: ___Cephalexin___ DO NOT STOP ANY OF YOUR OTHER PRESCRIPTION MEDICATIONS PRIOR TO SURGERY EXCEPT THE FOLLOWING Hold all vitamins and supplements for 3 days per anesthesiologist. stop now. Medications to discontinue per physician __Aspirin last taken [id number] Date to take last dose____ Please no make-up, nail sudanese, hairspray, perfume, deodorant, or body powder the day of surgery.? No jewelry (including any body piercings) or valuables the day of surgery, leave them at home.? Please take a shower or bath the night before, or the morning of, surgery with an antibacterial soap.? Wear comfortable, loose fitting clothing.? - Jewelry must be removed prior to entering the operating room.? Rings and piercings that are not removed may be cut off. - The hospital will not accept responsibility for valuables.? - Please leave all valuables, including medications, at home the day of surgery. If you are going home after surgery, a licensed commercial front load driver must drive you home.? - NO public transportation without another adult if you receive anesthesia. - We recommend that an adult stay with you for 24 hours following discharge. - We also recommend that you do not drive, make important decision, drink alcoholic beverages, or take any drugs that were not prescribed by your health care provider for at least 24 hours after your discharge time. Follow any additional instructions given to you from your surgeon. Telephone instructions given to __Whitneya__and asked if any additional questions and then verbalized understanding. Patient advised to call surgeon office or pre surgery nurse liaison [phone] if any additional questions.
[2024-08-06] VITALS (8 sets, daily range): BP systolic 114–156; BP diastolic 60–84; PULSE 70–98; RESP 11–18; TEMP 36.3–36.5; O2SAT 95–100; BMI 24.8
--- NOTE | ~2024-08-06 | XR_ITS ---
INTRAOPERATIVE FLUOROSCOPY: CLINICAL HISTORY: 69 years old Female; RIGHT STENT/RETRO PROCEDURE COMMENTS: Limited intraoperative fluoroscopy of the retroperitoneum was performed. CUMULATIVE DOSE: 8.2 mGy FLUOROSCOPY TIME: 21.5 seconds FINDINGS/IMPRESSION: Please refer to operative note for further details. Reviewed, dictated and finalized at location A.
--- NOTE | 2024-08-06 06:16 | WPDHPUPDATE1 ---
History and Physical Update Update Date/Time: 08/06/24 06:16 History and Physical has been reviewed, including an updated exam of the patient. There are NO changes in the patient's condition. Risks, benefits, and alternatives have been discussed and questions answered. Patient agrees to proceed with procedure.
--- NOTE | 2024-08-06 07:37 | P.PNAN_ITS ---
Anes - Initial Pre Proc Eval Procedure: Operation Date: 08/06/24 12:45 Proposed Procedures p Cystoscopy, Right Ureteroscopy, Possible Right Retrograde Pyelogram, Possible Right Stone Extraction, Possible Right Stent Removal/Replacement, Possible Holmium Laser - Srikanth Whatley MD Date/Time: 08/06/24 07:37 Surgeon: Srikanth Whatley MD Pre Op Diagnosis: right ureteral stone Patient Data Age: 69 Gender: F Height: 1.6 m Weight: 57.7 kg Allergies Allergy/AdvReac Type Severity Reaction Status Date / Time Sulfa (Sulfonamide AdvReac Hives Verified 08/05/24 08:19 Antibiotics) Home Medications ?Medication ?Instructions ?Recorded ?Confirmed ?Type ascorbate calcium (vitamin C) 500 500 mg PO EVERY OTHER DAY 08/01/24 08/05/24 History mg tablet aspirin 81 mg tablet,delayed 81 mg PO DAILY 08/01/24 08/05/24 History release (Adult Low Dose Aspirin) losartan 25 mg tablet 25 mg PO DAILY 08/01/24 08/05/24 History magnesium sulfate 100 mg capsule 100 mg PO EVERY OTHER DAY 08/01/24 08/05/24 History vit C-vit J-htsxfj-qtgxuuhw capsule 1 cap PO DAILY 08/01/24 08/05/24 History vitamin E 268 mg (400 unit) capsule 268 mg PO DAILY 08/01/24 08/05/24 History cephalexin 500 mg capsule 500 mg PO Q6HR #28 caps 08/03/24 08/05/24 Rx Patient hx anesthesia problems: none Family hx anesthesia problems: none Results Review: All pre-operative results and documents have been reviewed as part of the pre- operative evaluation. ON LICENSE OF [facility] Past Medical History Medical History (Updated 08/03/24 @ 09:04 by Karen Espinal PA-C) HTN (hypertension) Social History Social History Smoking status: Never smoker Alcohol intake: never Substance use: never Substance use type: does not use Do You Feel Safe in your Home?: Yes Lack of Transportation: YES Lack of Food: Never True Current Housing: I Have Housing Concerned About Future Housing: No Difficulty Paying Gas/Electric Bills: No Difficulty Paying for Meds: No Currently Unemployed: No Education: Bachelor's Degree Difficulty w/ Childcare or Family Care: No Living arrangements: with family Spiritual care concerns: No Anes - Eval Final PreProcedure Day of Procedure 08/06/24 07:37 Patient weight: normal Heart: regular rate and rhythm Lungs: clear to auscultation Airway: Mallampati scale class II Neurological: alert and oriented Last oral intake: >/= 8 hours ASA classification: II Emergent: no Anesthetic plan: proceed Anesthesia type and monitoring: general LMA and standard monitoring Results Review: All pre-operative results and documents have been reviewed as part of the pre- operative evaluation. Informed Consent: The patient's anesthetic plan and its attendant risks and benefits were discussed with the patient/family/POA. Questions were solicited and answers provided to the satisfaction of the patient/family/POA.
--- NOTE | 2024-08-06 11:04 | ECG_ITS ---
Test Date: 2024-08-06 11:17:06 Measurements Intervals [place] Rate: 105 P: 61 PA: 104 QRS: 73 QRSD: 117 T: 41 QT: 363 QTc: 481 Interpretive Statements SINUS TACHYCARDIA RIGHT BUNDLE BRANCH BLOCK BASELINE ARTIFACT- I, II, III, AVR, AVL, AVF, V1 ABNORMAL ECG No previous ECG available for comparison Electronically Signed On 08-06-2024 12:06:47 CDT by Babak Henry D.O.
[2024-08-06] MEDS: LACTATED RINGERS 1,000 ML 30 ML IV CONT (11:30)
[2024-08-06] MEDS: ceFAZolin 2 GM/D5W 50 ML 2 GM/50 ML BAG IVPB (12:04)
[2024-08-06] MEDS: LIDOCAINE 2% GEL UROJET 10 ML PKG MUCOUS MEM (12:14)
--- NOTE | 2024-08-06 12:32 | S_PTH ---
PATIENT: Leatha Goldberg LOC: [facility] U#:[id number] AGE/SX: 69/F ROOM: RE08/06/[address]: Srikanth Whatley MD : 1955 BED: DIS: 08/06/2024 SPEC #: [id number] RECD: 08/07/24 08:24 STATUS: NANCY REQ #: [id number] ERLINDA: 08/06/24 12:[address]: Srikanth Whatley DEPT: [facility] Surgical RECD BY: Shamika Dobbs Tissues: A - Stone Procedures: Gross Exam Level 1 Crystalline Analysis
--- NOTE | 2024-08-06 12:38 | W.PM.PROC2 ---
Procedure Note - Detailed Date of Procedure 08/06/24 Pre-op Diagnosis Right ureteral stone Post-op Diagnosis Same Procedure Performed Cystoscopy, right ureteral stent removal, right ureteroscopy with laser lithotripsy, stone extraction, right retrograde pyelogram and stent replacement Surgeon Srikanth Whatley MD Anesthesia General Description of Procedure Patient is brought to the operative suite where she was prepped draped in routine sterile fashion while in dorsal lithotomy position after the uneventful induction of a general anesthetic. Cystoscopy was undertaken with a 19 F rigid cystoscope. The tip of the indwelling stent is grasped and is brought to the external urethral meatus. A 0.035 in glidewire advanced into the right renal pelvis. Distal ureter was dilated with an 8 F 10 F dilator. Ureteroscopy was undertaken with a short tapered semi-rigid ureteral scope. There was moderate ureteral edema which precludes extraction of the stent intact. Using a 200 micron [employer] laser fiber for a fractured into multiple small pieces all of which were removed with ease with a 1.9 F disposable stone basket replace the 4.8 F variable length stent after performing a retrograde pyelogram to ensure appropriate positioning. There was no evidence of extravasation of contrast. Patient tolerated procedure well was taken recovery room good condition. Drains Yes Packing No Pathology Yes Complications No immediate complications
== END 2024-08-06 14:20 | disposition home or self-care (01) ==
PROVIDERS: Visit Provider Urology
PROC: (CPT 52352; principal; 2024-08-06 12:45)
DX: N20.1 Calculus of ureter (principal)
CPT/HCPCS: 52356; 74420; 82365; 88300; 93005; C1769; C2617; J0690; J3010; J7120; Q9966